=== PATIENT | male | born 1990 | race American Indian/Alaskan Native ===

== ENCOUNTER 2018-01-21 14:22 | Emergency (ER) | payer OTHER ==
--- NOTE | 2018-01-21 15:18 | ED PDOC ---
Arrival/HPI - General Time Seen by Provider: 01/21/18 14:44 Historian: Patient - History of Present Illness Narrative History of Present Illness (Text): 01/21/18 15:10 27 year old male, with no significant past medical history, who presents to the emergency department with aching lower back pain with no radiation, after "pulling his back out" doing squats at the gym. Patient notes he has never had back problems before. Patient denies any weakness, numbness, tingling, abdominal pain, nausea, vomiting, any genitourinary symptoms, or any other complaints. Patient states he quit smoking 4 weeks ago and occasionally consumes EtOH, no drugs. Symptom Onset: Sudden Symptom Course: Unchanged Quality: Aching Activities at Onset: Other (Doing squats) Context: Other (Gym) Associated Symptoms (Text): 01/21/18 16:03 Patient was doing squats today and injured his lower back. No abdominal pain nausea vomiting diarrhea constipation or symptoms. No radiation of the pain. No numbness tingling or paresthesias. No weakness. No history of low back pain. I discussed with the patient that I did not feel imaging was indicated at this time, but the patient requested x-rays nonetheless. Past Medical History - Provider Review Nursing Documentation Reviewed: Yes Family/Social History - Physician Review Nursing Documentation Reviewed: Yes Family/Social History: Unknown Family HX Smoking Status: Current Some Days Smoker Hx Alcohol Use: Yes Frequency of alcohol use: Socially Hx Substance Use: No Allergies/Home Meds Allergies/Adverse Reactions: Allergies No Known Allergies Allergy (Unverified 01/21/18 15:21) Review of Systems - Physician Review All systems were reviewed & negative as marked: Yes - Review of Systems Constitutional: Normal Respiratory: Normal Cardiovascular: Normal Gastrointestinal: Normal. absent: Abdominal Pain, Nausea, Vomiting Genitourinary Male: Normal. absent: Urinary Output Changes Musculoskeletal: Back Pain (patient notes pain in lower lumbar area, with no radiation ). absent: Normal, Neck Pain Neurological: Normal, Other (no weakness/numbness/tingling) Physical Exam Temperature: Afebrile Blood Pressure: Normal Pulse: Regular Respiratory Rate: Normal Appearance: Positive for: Well-Appearing, Uncomfortable Pain Distress: Mild Mental Status: Positive for: Alert and Oriented X 3 - Systems Exam Head: Present: Atraumatic, Normocephalic Pupils: Present: PERRL Extroacular Muscles: Present: EOMI Conjunctiva: Present: Normal Mouth: Present: Moist Mucous Membranes Neck: Present: Normal Range of Motion Respiratory/Chest: Present: Clear to Auscultation, Good Air Exchange. No: Respiratory Distress, Accessory Muscle Use Cardiovascular: Present: Regular Rate and Rhythm, Normal S1, S2. No: Murmurs Abdomen: No: Tenderness, Distention, Peritoneal Signs, Rebound, Guarding Back: Present: Paraspinal Tenderness, Other (spasms in his bilateral lumbar. No scoliosis. No sciatic notch tenderness. ). No: Normal Inspection, CVA Tenderness, Midline Tenderness, Pain with Leg Raise (negative leg raise) Upper Extremity: Present: Normal Inspection. No: Cyanosis, Edema Lower Extremity: Present: Normal Inspection. No: Edema Neurological: Present: GCS=15, CN II-XII Intact, Speech Normal, Motor Func Grossly Intact Skin: Present: Warm, Dry, Normal Color. No: Rashes Psychiatric: Present: Alert, Oriented x 3, Normal Insight, Normal Concentration Medical Decision Making ED Course and Treatment: 01/21/18 15:10 Impression: 27 year old male presents to the emergency department for back pain after doing squats at gym. Plan: -- Flexeril 10 mg PO -- Toradol 30 mg IM -- X-Ray of lumbar spine with obl >18 yrs old -- Reassess and disposition Progress Notes: 01/21/18 16:20 Patient and his are now requesting an MRI. I discussed in detail with them that I did not feel that any imaging, including the x-rays that he has already had, was indicated at this time. Discussed that I felt he needed to be treated first and imaging may be indicated at a later time. They were agreeable. - Scribe Statement The provider has reviewed the documentation as recorded by the Scribe Zenaida Camacho All medical record entries made by the Scribe were at my direction and personally dictated by me. I have reviewed the chart and agree that the record accurately reflects my personal performance of the history, physical exam, medical decision making, and the department course for this patient. I have also personally directed, reviewed, and agree with the discharge instructions and disposition. Disposition/Present on Arrival - Present on Arrival Any Indicators Present on Arrival: No History of DVT/PE: No History of Uncontrolled Diabetes: No Urinary Catheter: No History of Decub. Ulcer: No - Disposition Have Diagnosis and Disposition been Completed?: Yes Diagnosis: Lumbar spine strain Disposition: HOME/ ROUTINE Disposition Time: 16:21 Patient Plan: Discharge Condition: GOOD Discharge Instructions (ExitCare): Lumbar Muscle Strain (DC) Additional Instructions: Rest and moist heat. Follow-up with PMD. Follow up in ER as needed. Prescriptions: Cyclobenzaprine [Flexeril] 5 mg PO Q8 #15 tab Naproxen [Naprosyn] 500 mg PO BID #14 tab Referrals: FAMILY PROVIDER,NO [Primary Care Provider] - Follow up with primary Forms: WORK NOTE
[2018-01-21 15:37] VITALS: O2SAT 100; BMI 30.7
--- NOTE | 2018-01-21 16:32 | RAD ---
Date of service: 01/21/2018 PROCEDURE: Radiographs of the Lumbar Spine. HISTORY: pain COMPARISON: No prior. FINDINGS: BONES: Normal alignment. No listhesis. No fracture. DISC SPACES: Unremarkable. OTHER FINDINGS: None. IMPRESSION: Unremarkable radiographs of the lumbar spine.
[2018-01-21 23:14] VITALS: BP 127/75; PULSE 80; RESP 18; TEMP 98.2
== END 2018-01-21 16:30 | disposition home or self-care (01) ==
LOC: ED 14:22
DX: S39.012A Strain of muscle, fascia and tendon of lower back, initial encounter (principal); X50.0XXA Overexertion from strenuous movement or load, initial encounter; Y92.39 Other specified sports and athletic area as the place of occurrence of the external cause
CPT/HCPCS: 72110; 96372; 99283; J1885